=== PATIENT | female | born 1975 | race Caucasian/White ===

== ENCOUNTER 2016-03-20 10:22 | Emergency (ER) | payer MEDICAID ==
[~2016-03-20] VITALS: Ht 177.8 cm; Wt 71.2 kg
[2016-03-20 10:30] VITALS: BP 142/91; PULSE 97; RESP 15; TEMP 97.1; O2SAT 99
--- NOTE | 2016-03-20 10:30 | NUR ---
Patient to ER bed 8 to gown for evaluation. Side rails up. Report given to ESAU Hill.
--- NOTE | 2016-03-20 10:40 | NUR ---
c/o cold symptoms for three weeks, left side chest pain,left shoulder pain started a a couple of days ago.pt A&O x 4,no distress noted.
--- NOTE | 2016-03-20 10:51 | NUR ---
ER at bedside examining patient.
[2016-03-20] MEDS ORDERED: KETOROLAC TROMETHAMINE 60 MG/2 ML VIAL IM ONE (11:00)
--- NOTE | 2016-03-20 11:37 | NUR ---
EKG done read by Dr maradiaga, lab drawn by lab.
[2016-03-20 11:53] LABS: BILIRUBIN,URINE NEGATIVE (NEGATIVE); BLOOD, URINE 3+ (NEGATIVE); CALCIUM 9.2 mg/dL (8.4-11.0); CLARITY/URINE CLEAR (CLEAR); COLOR,URINE YELLOW (YELLOW); CREATININE 0.78 mg/dL (0.55-1.30); GLUCOSE,URINE NEGATIVE (NEGATIVE); KETONES,URINE NEGATIVE (NEGATIVE); LEUKOCYTE ESTERASE ,URINE 1+ (NEGATIVE); NITRITE, URINE NEGATIVE (NEGATIVE); PH,URINE 7.5 (5.0-8.0); POTASSIUM 3.1 mmol/L (3.5-5.1); PROTEIN URINE 1+ (NEGATIVE)
[2016-03-20 11:57] LABS: HEMATOCRIT 31.7 % (36-48); HEMOGLOBIN 10.8 g/dL (12.0-16.0); MEAN CORPUSCULAR HEMOGLOBIN 32 pg (27-31); MEAN CORPUSCULAR HGB CONC 34 % (32-36); MEAN CORPUSCULAR VOLUME 93 fL (79.0-98.0); PLATELET COUNT (AUTO) 230 K/uL (130-430); RED BLOOD CELL COUNT(AUTO) 3.42 MIL/uL (4.2-6.2); RED CELL DISTRIBUTION WIDTH 14.5 % (9.0-15.0)
[2016-03-20 11:58] LABS: ALBUMIN 4.5 g/dL (3.4-4.8); TOTAL BILIRUBIN 0.6 mg/dL (0.0-1.0); TOTAL PROTEIN, SERUM 8.1 g/dL (6.4-8.3)
[2016-03-20] MEDS ORDERED: POTASSIUM CHLORIDE 20 MEQ TAB.PRT.SR PO ONE (12:15)
[2016-03-20 12:16] LABS: RBC,URINE 50-80 /HPF (0-3)
[2016-03-20 12:17] LABS: BACTERIA,URINE FEW /HPF (None Seen); MUCUS,URINE None Seen /LPF (None Seen); WBC,URINE 0-3 /HPF (0-3)
[2016-03-20] MEDS ORDERED: NITROFURANTOIN MONOHYD/M-CRYST 100 MG CAPSULE PO ONE (12:30)
[2016-03-20 12:38] LABS: BASOPHILS % (MANUAL) 0 % (0-2); EOSINOPHILS % (MANUAL) 0 % (0-7); LYMPHOCYTES % (MANUAL) 39 % (20-46); MONOCYTES % (MANUAL) 0 % (0-11); WHITE BLOOD COUNT (AUTO) 5.7 K/uL (4.8-10.8)
[2016-03-20 12:55] VITALS: BP 122/82; PULSE 91; RESP 18; TEMP 97.1; O2SAT 100
--- NOTE | 2016-03-20 12:55 | NUR ---
Patient given written and verbal discharge instructions and verbalizes understanding. ER MD discussed with patient the results and treatment provided. Given copies of tests performed in ER. Patient in stable condition. ID arm band removed. Rx of macrobid and i given. Patient educated on pain management and to follow up with PMD. Pain Scale 0/`0. Opportunity for quebuprofenstions provided and answered.
== END 2016-03-20 12:55 | disposition home or self-care (01) ==
LOC: SED 10:22
DX: M94.0 Chondrocostal junction syndrome [Tietze] (principal); N39.0 Urinary tract infection, site not specified; R31.9 Hematuria, unspecified; E87.6 Hypokalemia; D64.9 Anemia, unspecified; R03.0 Elevated blood-pressure reading, without diagnosis of hypertension; J45.909 Unspecified asthma, uncomplicated; Z88.8 Allergy status to other drugs, medicaments and biological substances
CPT/HCPCS: 36415; 71010; 80053; 81000; 81025; 83880; 84484; 85007; 85027; 87086; 93005; 96372; 99285; J1885

== ENCOUNTER 2018-04-08 12:35 | Emergency (ER) | payer MEDICAID ==
[~2018-04-08] VITALS: Ht 177.8 cm; Wt 67.1 kg
[2018-04-08 12:46] VITALS: BP_SYST 161
[2018-04-08] MEDS ORDERED: DIPH-TET-PERTUS Vaccine 0.5 ML VIAL (ADACEL) IM ONE (13:00)
[2018-04-08] MEDS ORDERED: LIDOCAINE 1% 10 MG/ML, 20 ML MDV INJ ONE (13:00)
[2018-04-08 14:22] VITALS: BP_SYST 161
== END 2018-04-08 14:22 | disposition home or self-care (01) ==
LOC: SED 12:35
DX: L03.012 Cellulitis of left finger (principal); R03.0 Elevated blood-pressure reading, without diagnosis of hypertension
CPT/HCPCS: 10060; 90471; 90715; 99283; J2001

== ENCOUNTER 2021-05-06 19:25 | Emergency (ER) | payer MEDICAID ==
[~2021-05-06] VITALS: Ht 175.3 cm; Wt 77.1 kg
[2021-05-06 19:25] VITALS: BP_SYST 133
--- NOTE | 2021-05-06 19:25 | NUR ---
Patient triaged and placed in waiting room. VSS and patient appears in no acute distress at this time. Accompanied by and children, awaiting available bed, and MD notified of need for MSE.
--- NOTE | 2021-05-06 19:58 | NUR ---
Patient to ER bed 03 to gown for evaluation. Side rails up. Report given to ESAU Salinas
[2021-05-06] MEDS ORDERED: KETOROLAC TROMETHAMINE 60 MG/2 ML VIAL IM ONE (21:30)
[2021-05-06] MEDS ORDERED: DIAZEPAM 5 MG TABLET (VALIUM) PO ONE (21:30)
[2021-05-06 23:15] VITALS: BP_SYST 130
--- NOTE | 2021-05-06 23:15 | NUR ---
Pt DC per Micaela DC instructions and prescription given to pt Pt advised to f/u with primary care in next 48hours Pt verbalized understandings AOX4 VSS NAD at this time Pt exited ED in wheelchair
== END 2021-05-06 23:14 | disposition home or self-care (01) ==
LOC: SED 19:25
DX: M54.50 Low back pain, unspecified (principal); Z88.8 Allergy status to other drugs, medicaments and biological substances
CPT/HCPCS: 72128; 72131; 76376; 96372; 99284; J1885

== ENCOUNTER 2021-11-03 09:01 | Emergency (ER) | payer MEDICAID ==
[~2021-11-03] VITALS: Ht 175.3 cm; Wt 62.1 kg
[2021-11-03 09:05] VITALS: BP_SYST 129
[2021-11-03 10:11] VITALS: BP_SYST 136
[2021-11-03] MEDS ORDERED: ALBUTEROL SULFATE 0.083% 2.5 MG/3 ML VIAL.NEB INH ONE ×2 (10:15→14:00)
[2021-11-03] MEDS ORDERED: predniSONE 20 MG TABLET PO ONE (10:30)
[2021-11-03 11:05] LABS: BASOPHILS # (AUTO) 0.1 K/uL (0.0-0.2); BASOPHILS % (AUTO) 0.9 % (0.0-2.0); EOSINOPHILS # (AUTO) 0.5 K/uL (0.0-0.4); EOSINOPHILS % (AUTO) 7.3 % (0.0-4.0); HEMATOCRIT 33.5 % (36-48); LYMPHOCYTES # (AUTO) 1.3 K/uL (1.0-5.5); LYMPHOCYTES % (AUTO) 19.6 % (20.5-51.5); MEAN CORPUSCULAR VOLUME 82 fL (79.0-98.0); MONOCYTES # (AUTO) 0.3 K/uL (0.0-1.0); NEUTROPHILS # (AUTO) 4.5 K/uL (1.8-7.7); NEUTROPHILS % (AUTO) 67.2 % (40.0-70.0); PLATELET COUNT (AUTO) 366 K/uL (130-430); WHITE BLOOD COUNT (AUTO) 6.7 K/uL (4.8-10.8)
[2021-11-03 12:15] LABS: ANION GAP 9 (5-15); CHLORIDE 104 mmol/L (98-107); CREATININE 0.65 mg/dL (0.55-1.30); GLUCOSE 120 mg/dL (70-99); POTASSIUM 3.2 mmol/L (3.5-5.1); UREA NITROGEN, BLOOD 18 mg/dL (8-21)
[2021-11-03] MEDS ORDERED: KETOROLAC TROMETHAMINE 30 MG VIAL IVP ONE (12:30)
[2021-11-03] MEDS ORDERED: NACL 0.9% 1,000 ML IV ONE (12:30)
[2021-11-03 12:35] LABS: ALANINE AMINOTRANSFERASE 6 U/L (12-78); ALBUMIN 3.4 g/dL (3.4-4.8); ASPARTATE AMINOTRANSFERASE 9 U/L (10-37); TOTAL BILIRUBIN 0.2 mg/dL (0.0-1.0)
[2021-11-03 13:16] LABS: GFR AFRICAN AMERICAN 125 mL/min (>90)
[2021-11-03] MEDS ORDERED: POTASSIUM CHLORIDE 20 MEQ/PKT PACKET PO ONE (14:00)
[2021-11-03] MEDS ORDERED: TRAM50TA PO (14:12)
[2021-11-03] MEDS ORDERED: PRED20TA PO (14:12)
[2021-11-03] MEDS ORDERED: AZIT-93 PO (14:12)
== END 2021-11-03 14:45 | disposition home or self-care (01) ==
LOC: SED 09:01
DX: J45.901 Unspecified asthma with (acute) exacerbation (principal); J20.9 Acute bronchitis, unspecified; E87.6 Hypokalemia; Z88.2 Allergy status to sulfonamides; Z88.8 Allergy status to other drugs, medicaments and biological substances; Z79.899 Other long term (current) drug therapy; Z20.822 Contact with and (suspected) exposure to COVID-19
CPT/HCPCS: 80053; 85025; 87040; 84484; 36415; 93005; 71045; 94640; 99284; 96361; 96374; 83605; 87426; J7512; J1885; J7613; J7030

== ENCOUNTER 2022-05-18 14:03 | Emergency (ER) | payer MEDICAID ==
[~2022-05-18] VITALS: Ht 177.8 cm; Wt 79.4 kg
[~2022-05-18 14:03] MED LIST: AZIT-93 PO; PRED20TA PO; TRAM50TA PO
[2022-05-18 14:10] VITALS: BP_SYST 153
--- NOTE | 2022-05-18 14:10 | NUR ---
ER at bedside examining patient.
--- NOTE | 2022-05-18 14:14 | NUR ---
Patient to ER bed H1 to gown for evaluation. Side rails up. Report given to CARA HOUSE.
--- NOTE | 2022-05-18 14:14 | NUR ---
Pt bib self from home chief complaint wheezing and asthmatic exascerbation with SOB. Pt states non compliance with asthma condition and presents with 97% saturation cap refill less than 3 second. Pt is AAox3.
--- NOTE | 2022-05-18 14:20 | NUR ---
Pt medicated per MD order and explained anti inflammatory properties of medication.
[2022-05-18] MEDS: IPRATROPIUM/ALBUTEROL SULFATE 3 ML AMPUL.NEB (DUONEB) INH ONE (14:27)
[2022-05-18] MEDS: predniSONE 20 MG TABLET PO ONE (14:36)
--- NOTE | 2022-05-18 14:36 | NUR ---
Respiratory therapist bedside giving treatment.
[2022-05-18] MEDS: ALBUTEROL SULFATE 0.083% 2.5 MG/3 ML VIAL.NEB INH ONE (15:41)
--- NOTE | 2022-05-18 16:15 | NUR ---
Medicated per MD orders. IVF infusing with no s/s of infiltration at this time. Will cont to monitor
[2022-05-18] MEDS: NACL 0.9% 1,000 ML IV ONE (16:33)
[2022-05-18] MEDS: MAGNESIUM SULFATE 50 ML IV ONE (18:01)
[2022-05-18] MEDS: methylPREDNISolone SOD SUCC/PF 62.5 MG/ML VIAL IVP ONE (18:02)
[2022-05-18] MEDS ORDERED: methylPREDNISolone SOD SUCC/PF 62.5 MG/ML VIAL ONE (18:27)
[2022-05-18] MEDS ORDERED: ALBUTEROL SULFATE 0.083% 2.5 MG/3 ML VIAL.NEB INH ONE (19:00)
--- NOTE | 2022-05-18 19:04 | NUR ---
GAVE REPORT TO LACY MILLER.
--- NOTE | 2022-05-18 19:15 | NUR ---
RECEIVED REPORT FROM OUTGOING NURSE, LACY MARROQUIN. RECEIVED PT AWAKE AND ALERT. C/O OF SINUS PAIN RATING 7/10. PAIN MEDICATION GIVEN BY ESAU HENDERSON. VITALS TAKEN.
[2022-05-18] MEDS: KETOROLAC TROMETHAMINE 30 MG VIAL IVP ONE (19:32)
[2022-05-18] MEDS ORDERED: PRED20TA PO (20:18)
[2022-05-18] MEDS ORDERED: LORA10TA7 PO (20:18)
--- NOTE | 2022-05-18 20:32 | NUR ---
Patient given written and verbal discharge instructions and verbalizes understanding. ER Dr Cotto discussed with patient the results and treatment provided. Patient in stable condition. ID arm band removed. IV catheter removed intact and dressing applied, no active bleeding. Rx of Claritin and Prednisone given. Patient educated on pain management and to follow up with PMD. Pain Scale 4/10. Opportunity for questions provided and answered. Medication side effect fact sheet provided.
[2022-05-18 20:38] VITALS: BP_SYST 120
== END 2022-05-18 20:32 | disposition home or self-care (01) ==
LOC: SED 14:03
DX: J45.901 Unspecified asthma with (acute) exacerbation (principal); J80 Acute respiratory distress syndrome; J32.9 Chronic sinusitis, unspecified; R05.9 Cough, unspecified; Z88.8 Allergy status to other drugs, medicaments and biological substances; Z79.899 Other long term (current) drug therapy
CPT/HCPCS: 71045; 94640; 99291; 96365; 96366; 96375; J7512; J1885; J3475; J2930; J7613

== ENCOUNTER 2023-10-04 22:22 | Inpatient (IN) | payer MEDICAID ==
[~2023-10-04] VITALS: Ht 175.3 cm; Wt 84.6 kg
[~2023-10-04 22:22] MED LIST changes: +LORA10TA7 PO
[2023-10-04 22:31] VITALS: BP_SYST 157; PULSE 118; RESP 18; TEMP 97.5; O2SAT 95
[2023-10-04] MEDS: methylPREDNISolone SOD SUCC/PF 62.5 MG/ML VIAL IVP ONE (23:32)
[2023-10-04] MEDS: MAGNESIUM SULFATE 50 ML IV ONE (23:32)
[2023-10-04] MEDS: ALBUTEROL SULFATE 0.083% 2.5 MG/3 ML VIAL.NEB INH ONE (23:50)
[2023-10-05] VITALS (12 sets, daily range): BP systolic 126–155; PULSE 112–134; RESP 16–22; TEMP 97.6–98.1; O2SAT 92–98
[2023-10-05] LABS: BASOPHILS # (AUTO) 0.4 K/uL (0.0-0.2); BASOPHILS % (AUTO) 3.9 % (0.0-2.0); EOSINOPHILS # (AUTO) 0.7 K/uL (0.0-0.4); EOSINOPHILS % (AUTO) 7.6 % (0.0-4.0); HEMATOCRIT 40.3 % (36-48); HEMOGLOBIN 13.6 g/dL (12.0-16.0); LYMPHOCYTES # (AUTO) 1.2 K/uL (1.0-5.5); LYMPHOCYTES % (AUTO) 12.3 % (20.5-51.5); MEAN CORPUSCULAR HEMOGLOBIN 31 pg (27-31); MEAN CORPUSCULAR HGB CONC 34 % (32-36); MEAN CORPUSCULAR VOLUME 91 fL (79.0-98.0); MONOCYTES # (AUTO) 0.4 K/uL (0.0-1.0); MONOCYTES % (AUTO) 3.8 % (1.7-9.3); NEUTROPHILS # (AUTO) 6.8 K/uL (1.8-7.7); NEUTROPHILS % (AUTO) 72.4 % (40.0-70.0); PLATELET COUNT (AUTO) 313 K/uL (130-430); RED BLOOD CELL COUNT(AUTO) 4.45 MIL/uL (4.2-6.2); RED CELL DISTRIBUTION WIDTH 16.8 % (9.0-15.0); WHITE BLOOD COUNT (AUTO) 9.4 K/uL (4.8-10.8)
[2023-10-05 00:18] LABS: CALCIUM 8.5 mg/dL (8.4-11.0); CREATININE 0.7 mg/dL (0.55-1.30); POTASSIUM 3.7 mmol/L (3.5-5.1)
[2023-10-05 01:14] LABS: BLOOD GAS PCO2 31.8 mmHg (35.0-45.0)
[2023-10-05 01:15] LABS: ABG O2 SAT% ESTIMATE 90.1 % (94.0-100.0); BLOOD GAS HCO3 22.1 mmol/L (21.0-27.0); BLOOD GAS PO2 53.9 mmHg (75.0-100.0)
[2023-10-05 01:16] LABS: ALLEN'S TEST POSITIVE (P)
[2023-10-05] MEDS: AZITHROMYCIN 500 MG in NS 250 ML IV ONE (02:03)
[2023-10-05] MEDS ORDERED: AZITHROMYCIN 500 MG/VIAL (ZITHROMAX) IV ONE (02:03)
[2023-10-05] MEDS: IPRATROPIUM/ALBUTEROL SULFATE 3 ML AMPUL.NEB (DUONEB) INH PRN (09:13)
[2023-10-05] MEDS ORDERED: ONDANSETRON HCL 4 MG/2 ML VIAL IVP PRN (10:00)
[2023-10-05] MEDS ORDERED: traMADol HCL HCL 50 MG TABLET (ULTRAM) PO PRN (10:00)
[2023-10-05 11:24] LABS: BASOPHILS % (AUTO) 0.3 % (0.0-2.0); EOSINOPHILS % (AUTO) 0.1 % (0.0-4.0); HEMATOCRIT 43.2 % (36-48); HEMOGLOBIN 14.2 g/dL (12.0-16.0); LYMPHOCYTES # (AUTO) 0.7 K/uL (1.0-5.5); LYMPHOCYTES % (AUTO) 5.5 % (20.5-51.5); MEAN CORPUSCULAR HEMOGLOBIN 30 pg (27-31); MEAN CORPUSCULAR HGB CONC 33 % (32-36); MEAN CORPUSCULAR VOLUME 92 fL (79.0-98.0); MONOCYTES # (AUTO) 0.1 K/uL (0.0-1.0); MONOCYTES % (AUTO) 0.5 % (1.7-9.3); NEUTROPHILS # (AUTO) 12.4 K/uL (1.8-7.7); NEUTROPHILS % (AUTO) 93.6 % (40.0-70.0); PLATELET COUNT (AUTO) 370 K/uL (130-430); RED BLOOD CELL COUNT(AUTO) 4.72 MIL/uL (4.2-6.2); RED CELL DISTRIBUTION WIDTH 16.8 % (9.0-15.0); WHITE BLOOD COUNT (AUTO) 13.2 K/uL (4.8-10.8)
[2023-10-05 11:31] LABS: CALCIUM 9.3 mg/dL (8.4-11.0); CREATININE 0.88 mg/dL (0.55-1.30); POTASSIUM 4.1 mmol/L (3.5-5.1)
[2023-10-05] MEDS: IPRATROPIUM/ALBUTEROL SULFATE 3 ML AMPUL.NEB (DUONEB) INH SCH (11:58)
[2023-10-05] MEDS ORDERED: ACETAMINOPHEN 325 MG TABLET PO PRN (12:30)
[2023-10-05] MEDS: LORATADINE 10 MG TABLET PO ONE (12:37)
[2023-10-05] MEDS: ACETAMINOPHEN 325 MG TABLET PO PRN (12:39)
[2023-10-05] MEDS: NORMAL SALINE 5 ML DISP.SYRIN IVF SCH (14:21)
[2023-10-05] MEDS: METHYLPREDNISOLONE SOD SUCC 40 MG/ML VIAL IVP SCH (19:08)
[2023-10-05] MEDS ORDERED: METHYLPREDNISOLONE SOD SUCC 40 MG/ML VIAL IVP SCH (21:00)
[2023-10-05] MEDS: FLUTICASONE PROPIONATE 50 mCg/SPRAY 16 GM NS SCH (22:12)
[2023-10-06] VITALS (12 sets, daily range): BP systolic 119–134; PULSE 99–113; RESP 16–19; TEMP 97.2–97.9; O2SAT 93–98
[2023-10-06] MEDS: LEVOTHYROXINE SODIUM 0.075 MG TABLET PO SCH (07:32)
[2023-10-06 08:12] LABS: BASOPHILS # (AUTO) 0.1 K/uL (0.0-0.2); BASOPHILS % (AUTO) 0.5 % (0.0-2.0); HEMOGLOBIN 13.1 g/dL (12.0-16.0); LYMPHOCYTES # (AUTO) 0.7 K/uL (1.0-5.5); LYMPHOCYTES % (AUTO) 4.6 % (20.5-51.5); MEAN CORPUSCULAR HEMOGLOBIN 30 pg (27-31); MEAN CORPUSCULAR HGB CONC 33 % (32-36); MEAN CORPUSCULAR VOLUME 92 fL (79.0-98.0); MONOCYTES # (AUTO) 0.2 K/uL (0.0-1.0); MONOCYTES % (AUTO) 1.5 % (1.7-9.3); NEUTROPHILS # (AUTO) 14.8 K/uL (1.8-7.7); NEUTROPHILS % (AUTO) 93.4 % (40.0-70.0); PLATELET COUNT (AUTO) 356 K/uL (130-430); RED BLOOD CELL COUNT(AUTO) 4.36 MIL/uL (4.2-6.2); RED CELL DISTRIBUTION WIDTH 16.3 % (9.0-15.0); WHITE BLOOD COUNT (AUTO) 15.8 K/uL (4.8-10.8)
[2023-10-06] MEDS: LORATADINE 10 MG TABLET PO SCH (08:12)
[2023-10-06 08:33] LABS: ALBUMIN 3.6 g/dL (3.4-4.8); CALCIUM 8.9 mg/dL (8.4-11.0); CREATININE 0.83 mg/dL (0.55-1.30); POTASSIUM 4.2 mmol/L (3.5-5.1); TOTAL BILIRUBIN 0.4 mg/dL (0.0-1.0); TOTAL PROTEIN, SERUM 7.6 g/dL (6.4-8.3)
[2023-10-06] MEDS: traMADol HCL HCL 50 MG TABLET (ULTRAM) PO PRN (20:40)
[2023-10-07] VITALS (12 sets, daily range): BP systolic 118–137; PULSE 88–102; RESP 16–18; TEMP 96.8–98; O2SAT 94–97
[2023-10-07 07:10] LABS: BASOPHILS % (AUTO) 0.1 % (0.0-2.0); HEMATOCRIT 36.6 % (36-48); HEMOGLOBIN 11.9 g/dL (12.0-16.0); LYMPHOCYTES # (AUTO) 0.6 K/uL (1.0-5.5); LYMPHOCYTES % (AUTO) 3.8 % (20.5-51.5); MEAN CORPUSCULAR HEMOGLOBIN 30 pg (27-31); MEAN CORPUSCULAR HGB CONC 33 % (32-36); MEAN CORPUSCULAR VOLUME 92 fL (79.0-98.0); MONOCYTES # (AUTO) 0.4 K/uL (0.0-1.0); MONOCYTES % (AUTO) 2.1 % (1.7-9.3); NEUTROPHILS # (AUTO) 15.9 K/uL (1.8-7.7); PLATELET COUNT (AUTO) 319 K/uL (130-430); RED BLOOD CELL COUNT(AUTO) 3.98 MIL/uL (4.2-6.2); RED CELL DISTRIBUTION WIDTH 16.6 % (9.0-15.0); WHITE BLOOD COUNT (AUTO) 16.9 K/uL (4.8-10.8)
[2023-10-07 07:16] LABS: CALCIUM 8.5 mg/dL (8.4-11.0); CREATININE 0.85 mg/dL (0.55-1.30); POTASSIUM 4.7 mmol/L (3.5-5.1)
[2023-10-07] MEDS: BENZOCAINE/MENTHOL 1 EACH LOZENGE MM PRN (09:40)
[2023-10-07] MEDS: cefTRIAXone 1 GM in D5W 50 ML IV SCH (11:12)
[2023-10-08] VITALS (15 sets, daily range): BP systolic 127–147; PULSE 76–101; RESP 15–20; TEMP 96.1–98.2; O2SAT 88–98
[2023-10-08 05:26] LABS: BASOPHILS % (AUTO) 0.2 % (0.0-2.0); EOSINOPHILS % (AUTO) 0.1 % (0.0-4.0); HEMATOCRIT 37.7 % (36-48); HEMOGLOBIN 12.1 g/dL (12.0-16.0); LYMPHOCYTES # (AUTO) 0.7 K/uL (1.0-5.5); LYMPHOCYTES % (AUTO) 4.7 % (20.5-51.5); MEAN CORPUSCULAR HEMOGLOBIN 30 pg (27-31); MEAN CORPUSCULAR HGB CONC 32 % (32-36); MEAN CORPUSCULAR VOLUME 92 fL (79.0-98.0); MONOCYTES # (AUTO) 0.2 K/uL (0.0-1.0); MONOCYTES % (AUTO) 1.6 % (1.7-9.3); NEUTROPHILS # (AUTO) 14.4 K/uL (1.8-7.7); NEUTROPHILS % (AUTO) 93.4 % (40.0-70.0); PLATELET COUNT (AUTO) 337 K/uL (130-430); RED CELL DISTRIBUTION WIDTH 16.7 % (9.0-15.0); WHITE BLOOD COUNT (AUTO) 15.4 K/uL (4.8-10.8)
[2023-10-08 06:20] LABS: ALBUMIN 3.3 g/dL (3.4-4.8); CALCIUM 8.6 mg/dL (8.4-11.0); CREATININE 0.92 mg/dL (0.55-1.30); POTASSIUM 4.4 mmol/L (3.5-5.1); TOTAL BILIRUBIN 0.3 mg/dL (0.0-1.0); TOTAL PROTEIN, SERUM 6.8 g/dL (6.4-8.3)
[2023-10-08 10:29] LABS: BLOOD GAS PCO2 36.7 mmHg (32.0-45.0)
[2023-10-08 10:30] LABS: ABG O2 SAT% ESTIMATE 88.3 % (94.0-98.0); ALLEN'S TEST POSITIVE (P); BLOOD GAS BASE EXCESS 2.2 mmol/L (-2.0-3.0); BLOOD GAS HCO3 25.8 mmol/L (21.0-28.0); BLOOD GAS PH 7.464 (7.350-7.450); BLOOD GAS PO2 50.9 mmHg (83.0-108.0)
[2023-10-08] MEDS: DOCUSATE SODIUM 100 MG CAPSULE PO PRN (17:51)
[2023-10-09] VITALS (11 sets, daily range): BP systolic 124–144; PULSE 88–99; RESP 16–20; TEMP 96.9–98.1; O2SAT 93–98
[2023-10-09] MEDS: LORazepam 2 MG/ML VIAL IVP PRN (01:04)
[2023-10-09 08:48] LABS: BASOPHILS % (AUTO) 0.2 % (0.0-2.0); LYMPHOCYTES % (AUTO) 7.6 % (20.5-51.5); MONOCYTES # (AUTO) 0.5 K/uL (0.0-1.0)
[2023-10-09 08:51] LABS: CALCIUM 8.7 mg/dL (8.4-11.0); CREATININE 0.86 mg/dL (0.55-1.30); POTASSIUM 4.6 mmol/L (3.5-5.1)
[2023-10-09 08:52] LABS: HEMATOCRIT 39.2 % (36-48); HEMOGLOBIN 12.8 g/dL (12.0-16.0); MEAN CORPUSCULAR HEMOGLOBIN 30 pg (27-31); MEAN CORPUSCULAR HGB CONC 33 % (32-36); MEAN CORPUSCULAR VOLUME 92 fL (79.0-98.0); MONOCYTES % (AUTO) 3.8 % (1.7-9.3); NEUTROPHILS # (AUTO) 11.4 K/uL (1.8-7.7); NEUTROPHILS % (AUTO) 88.4 % (40.0-70.0); PLATELET COUNT (AUTO) 330 K/uL (130-430); RED BLOOD CELL COUNT(AUTO) 4.27 MIL/uL (4.2-6.2); RED CELL DISTRIBUTION WIDTH 16.3 % (9.0-15.0); WHITE BLOOD COUNT (AUTO) 12.9 K/uL (4.8-10.8)
[2023-10-09 09:17] LABS: ERYTHROCYTE SEDIMENTATION RATE 42 MM/HR (0-20)
[2023-10-10] VITALS (11 sets, daily range): BP systolic 115–135; PULSE 96–109; RESP 18–20; TEMP 96.8–98.4; O2SAT 94–96
[2023-10-10 07:58] LABS: CALCIUM 8.5 mg/dL (8.4-11.0); CREATININE 0.75 mg/dL (0.55-1.30); POTASSIUM 4.5 mmol/L (3.5-5.1)
[2023-10-10 08:00] LABS: BASOPHILS % (AUTO) 0.1 % (0.0-2.0); HEMOGLOBIN 13.1 g/dL (12.0-16.0); LYMPHOCYTES # (AUTO) 0.9 K/uL (1.0-5.5); LYMPHOCYTES % (AUTO) 6.8 % (20.5-51.5); MEAN CORPUSCULAR HEMOGLOBIN 30 pg (27-31); MEAN CORPUSCULAR HGB CONC 33 % (32-36); MEAN CORPUSCULAR VOLUME 91 fL (79.0-98.0); MONOCYTES # (AUTO) 0.5 K/uL (0.0-1.0); MONOCYTES % (AUTO) 3.8 % (1.7-9.3); NEUTROPHILS # (AUTO) 12.4 K/uL (1.8-7.7); NEUTROPHILS % (AUTO) 89.3 % (40.0-70.0); PLATELET COUNT (AUTO) 346 K/uL (130-430); RED BLOOD CELL COUNT(AUTO) 4.37 MIL/uL (4.2-6.2); RED CELL DISTRIBUTION WIDTH 16.5 % (9.0-15.0); WHITE BLOOD COUNT (AUTO) 13.8 K/uL (4.8-10.8)
[2023-10-10 08:20] LABS: ERYTHROCYTE SEDIMENTATION RATE 49 MM/HR (0-20)
[2023-10-11] VITALS (14 sets, daily range): BP systolic 114–139; PULSE 80–100; RESP 18–20; TEMP 97.1–98.1; O2SAT 94–98
[2023-10-11 07:37] LABS: BASOPHILS % (AUTO) 0.1 % (0.0-2.0); HEMATOCRIT 38.3 % (36-48); HEMOGLOBIN 12.7 g/dL (12.0-16.0); LYMPHOCYTES # (AUTO) 0.9 K/uL (1.0-5.5); LYMPHOCYTES % (AUTO) 6.1 % (20.5-51.5); MEAN CORPUSCULAR HEMOGLOBIN 30 pg (27-31); MEAN CORPUSCULAR HGB CONC 33 % (32-36); MEAN CORPUSCULAR VOLUME 91 fL (79.0-98.0); MONOCYTES # (AUTO) 0.4 K/uL (0.0-1.0); MONOCYTES % (AUTO) 2.6 % (1.7-9.3); NEUTROPHILS # (AUTO) 14.1 K/uL (1.8-7.7); NEUTROPHILS % (AUTO) 91.2 % (40.0-70.0); PLATELET COUNT (AUTO) 319 K/uL (130-430); RED CELL DISTRIBUTION WIDTH 15.8 % (9.0-15.0); WHITE BLOOD COUNT (AUTO) 15.4 K/uL (4.8-10.8)
[2023-10-11 07:45] LABS: ERYTHROCYTE SEDIMENTATION RATE 42 MM/HR (0-20)
[2023-10-11 07:51] LABS: CALCIUM 8.3 mg/dL (8.4-11.0); CREATININE 0.83 mg/dL (0.55-1.30); POTASSIUM 4.6 mmol/L (3.5-5.1); TOTAL BILIRUBIN 0.4 mg/dL (0.0-1.0); TOTAL PROTEIN, SERUM 6.4 g/dL (6.4-8.3)
[2023-10-12] VITALS (13 sets, daily range): BP systolic 110–147; PULSE 80–90; RESP 16–20; TEMP 96.4–97.8; O2SAT 94–98
[2023-10-12 07:18] LABS: BASOPHILS % (AUTO) 0.1 % (0.0-2.0); HEMATOCRIT 38.3 % (36-48); HEMOGLOBIN 12.6 g/dL (12.0-16.0); LYMPHOCYTES # (AUTO) 1.1 K/uL (1.0-5.5); MEAN CORPUSCULAR HEMOGLOBIN 30 pg (27-31); MEAN CORPUSCULAR HGB CONC 33 % (32-36); MEAN CORPUSCULAR VOLUME 91 fL (79.0-98.0); MONOCYTES # (AUTO) 0.5 K/uL (0.0-1.0); MONOCYTES % (AUTO) 3.1 % (1.7-9.3); NEUTROPHILS # (AUTO) 13.6 K/uL (1.8-7.7); PLATELET COUNT (AUTO) 305 K/uL (130-430); RED BLOOD CELL COUNT(AUTO) 4.19 MIL/uL (4.2-6.2); RED CELL DISTRIBUTION WIDTH 16.2 % (9.0-15.0); WHITE BLOOD COUNT (AUTO) 15.1 K/uL (4.8-10.8)
[2023-10-12 07:33] LABS: CALCIUM 8.2 mg/dL (8.4-11.0); CREATININE 0.81 mg/dL (0.55-1.30); POTASSIUM 4.8 mmol/L (3.5-5.1)
[2023-10-12 07:58] LABS: ERYTHROCYTE SEDIMENTATION RATE 39 MM/HR (0-20)
[2023-10-12 10:32] LABS: NEUTROPHILS % (AUTO) 89.8 % (40.0-70.0)
[2023-10-13] VITALS (11 sets, daily range): BP systolic 121–136; PULSE 73–90; RESP 18–19; TEMP 96.4–97.1; O2SAT 94–97
[2023-10-13 07:09] LABS: BASOPHILS % (AUTO) 0.2 % (0.0-2.0); HEMATOCRIT 39.9 % (36-48); HEMOGLOBIN 13.3 g/dL (12.0-16.0); LYMPHOCYTES # (AUTO) 1.2 K/uL (1.0-5.5); LYMPHOCYTES % (AUTO) 7.1 % (20.5-51.5); MEAN CORPUSCULAR HEMOGLOBIN 30 pg (27-31); MEAN CORPUSCULAR HGB CONC 33 % (32-36); MEAN CORPUSCULAR VOLUME 91 fL (79.0-98.0); MONOCYTES # (AUTO) 0.5 K/uL (0.0-1.0); MONOCYTES % (AUTO) 2.9 % (1.7-9.3); NEUTROPHILS # (AUTO) 14.8 K/uL (1.8-7.7); NEUTROPHILS % (AUTO) 89.8 % (40.0-70.0); PLATELET COUNT (AUTO) 322 K/uL (130-430); RED CELL DISTRIBUTION WIDTH 16.2 % (9.0-15.0); WHITE BLOOD COUNT (AUTO) 16.5 K/uL (4.8-10.8)
[2023-10-13 07:35] LABS: ERYTHROCYTE SEDIMENTATION RATE 35 MM/HR (0-20)
[2023-10-13 08:17] LABS: CALCIUM 8.4 mg/dL (8.4-11.0); CREATININE 0.85 mg/dL (0.55-1.30); POTASSIUM 4.4 mmol/L (3.5-5.1); TOTAL BILIRUBIN 0.4 mg/dL (0.0-1.0); TOTAL PROTEIN, SERUM 6.6 g/dL (6.4-8.3)
[2023-10-13] MEDS: LACTULOSE 20 GM/30 ML UDC PO ONE (09:40)
[2023-10-13] MEDS ORDERED: LEVO-62 PO (10:18)
[2023-10-13] MEDS ORDERED: PRED20TA PO ×2 (10:18)
[2023-10-13] MEDS ORDERED: DOCU-144 PO (10:18)
[2023-10-13] MEDS ORDERED: SYN75 PO (10:18)
== END 2023-10-13 16:30 | disposition home health service (06) | DRG 720 ==
LOC: SED 22:22 → STU 10-05 04:03 → SMU 10-07 01:36
PROVIDERS: ADMIT Preventive Medicine Preventive Medicine/Occupational Environmental Medicine; ATTEND Preventive Medicine Preventive Medicine/Occupational Environmental Medicine
DX: A41.9 Sepsis, unspecified organism (principal); J96.00 Acute respiratory failure, unspecified whether with hypoxia or hypercapnia; D72.10 Eosinophilia, unspecified; J18.9 Pneumonia, unspecified organism; E88.09 Other disorders of plasma-protein metabolism, not elsewhere classified; E87.1 Hypo-osmolality and hyponatremia; J45.901 Unspecified asthma with (acute) exacerbation; J44.0 Chronic obstructive pulmonary disease with (acute) lower respiratory infection; J44.1 Chronic obstructive pulmonary disease with (acute) exacerbation; E83.52 Hypercalcemia; E03.9 Hypothyroidism, unspecified; D64.9 Anemia, unspecified; Z88.8 Allergy status to other drugs, medicaments and biological substances; Z79.899 Other long term (current) drug therapy
CPT/HCPCS: 36415; 36600; 71045; 80048; 80053; 82803; 85025; 85379; 85651; 87040; 94070; 94640; 94760; 96365; 97110-GP; 97116-GP; 97530-GP; 99285; G0378; J0456; J0696; J1030; J2060; J2930; J3475; J7060